=== PATIENT | female | born 1985 ===

== ENCOUNTER 2016-08-25 12:29 | Emergency (ER) | payer OTHER ==
[2016-08-25 12:36] VITALS: BP 101/57; PULSE 78; RESP 16; TEMP 98.4; O2SAT 100
--- NOTE | 2016-08-25 14:43 | ED PDOC ---
HPI: General Adult Time Seen by Provider: 08/25/16 14:41 Chief Complaint (Nursing): Finger,Hand,&Wrist Chief Complaint (Provider): vaginal discharge History Per: Patient (31 y/o female here with foul-smelling vaginal discharge ongoing x 4 months. Notes foul-smelling and similar to h/o BV. Denies any dysuria/itching. No new sexual partners. (+) condom use. Additional complaint of ongoing right wrist pain with numbness in first 3 digits of right hand associated with braiding hair. (patient is chair lift operator).) Past Medical History Reviewed: Historical Data, Nursing Documentation, Vital Signs Vital Signs: Last Vital Signs Temp 98.4 F 08/25/16 12:32 Pulse 78 08/25/16 12:32 Resp 16 08/25/16 12:32 BP 101/57 L 08/25/16 12:32 Pulse Ox 100 08/25/16 12:32 - Surgical History Surgical History: (x3) - Family History Family History: States: Unknown Family Hx - Immunization History Hx Tetanus Toxoid Vaccination: No Hx Influenza Vaccination: No Hx Pneumococcal Vaccination: No - Home Medications Home Medications: Ambulatory Orders Medication Instructions Recorded Fluconazole [Diflucan] 150 mg PO ONCE #1 tab 12/21/15 No Other Home Meds 12/21/15 Doxycycline Hyclate 100 mg PO BID #28 capsule 05/10/16 Naproxen [Naprosyn] 500 mg PO BID PRN #15 tablet 05/10/16 Metronidazole [Flagyl] 500 mg PO BID #14 tablet 08/25/16 Naproxen 1 tab PO BID PRN #14 tab 08/25/16 - Allergies Allergies/Adverse Reactions: Allergies Allergy/AdvReac Type Severity Reaction Status Date / Time No Known Allergies Allergy Verified 08/25/16 12:32 Review of Systems ROS Statement: Except As Marked, All Systems Reviewed And Found Negative Physical Exam - Reviewed Nursing Documentation Reviewed: Yes Vital Signs Reviewed: Yes - Physical Exam Appears: Positive for: Well, Non-toxic, No Acute Distress Head Exam: Positive for: ATRAUMATIC, NORMAL INSPECTION, NORMOCEPHALIC Skin: Positive for: Normal Color, Warm, DRY Eye Exam: Positive for: EOMI, Normal appearance, PERRL ENT: Positive for: Normal ENT Inspection Neck: Positive for: Normal, Painless ROM Cardiovascular/Chest: Positive for: Regular Rate, Rhythm Respiratory: Positive for: CNT, Normal Breath Sounds Gastrointestinal/Abdominal: Positive for: Normal Exam, Bowel Sounds, Soft Pelvic Exam: Positive for: Discharge (moderate thin [place] vaginal discharge noted. ). Negative for: Tender W/Cervical Motion, Tender Adnexa Back: Positive for: Normal Inspection Extremity: Positive for: Tenderness, Swelling (cystic lesion noted volar surface of right wrist.). Negative for: Normal ROM Neurologic/Psych: Positive for: Alert, Oriented - Laboratory Results Urine POC: Negative - ECG O2 Sat by Pulse Oximetry: 100 - Progress ED Course And Treament: GC sent d/w patient f/u with hand surgeon for further evaluation of carpal tunnel syndrome. Has wrist splint at home. Disposition - Clinical Impression Clinical Impression: Carpal tunnel syndrome, Ganglion cyst, Vaginitis - Patient ED Disposition Is Patient to be Admitted: No - Disposition Referrals: Brian Rivero MD [Medical Doctor] - Disposition: Routine/Home Disposition Time: 14:47 Condition: FAIR Prescriptions: Metronidazole [Flagyl] 500 mg PO BID #14 tablet Naproxen 1 tab PO BID PRN #14 tab PRN Reason: Pain, Moderate (4-7) Instructions: Vaginitis (ED), Carpal Tunnel Syndrome (ED), Ganglion Cysts (ED) Forms: [facility] ED School/Work Excuse
== END 2016-08-25 15:22 | disposition home or self-care (01) ==
LOC: H.ER 12:29
DX: N76.0 Acute vaginitis (principal); G56.01 Carpal tunnel syndrome, right upper limb; M67.431 Ganglion, right wrist

== ENCOUNTER 2017-04-10 22:47 | Emergency (ER) | payer SELFPAY ==
[2017-04-10 22:56] VITALS: BP 121/55; PULSE 86; RESP 14; TEMP 98.2; O2SAT 98
[2017-04-10] MEDS ORDERED: Fluconazole 150 MG TAB PO ONE (23:40)
--- NOTE | 2017-04-10 23:42 | ED PDOC ---
HPI: Female Pain Time Seen by Provider: 04/10/17 23:04 Chief Complaint (Nursing): Female Genitourinary Chief Complaint (Provider): Female Genitourinary History Per: Patient History/Exam Limitations: no limitations Onset/Duration Of Symptoms: Days (x1) Current Symptoms Are (Timing): Still Present Additional Complaint(s): 31 year old female with previous medical history of bacterial vaginosis, who presents to the emergency department with a complaint of vaginal odor ongoing for 1 day. Denied any vaginal discharge, difficulty urinating, bloody urine, pelvic pain, nausea, vomiting or back pain. Patient also reported possibly having hemorrhoids. PMD: none provided Past Medical History Reviewed: Historical Data, Nursing Documentation, Vital Signs Vital Signs: Last Vital Signs Temp 98.2 F 04/10/17 22:53 Pulse 86 04/10/17 22:53 Resp 14 04/10/17 22:53 BP 121/55 L 04/10/17 22:53 Pulse Ox 98 04/10/17 22:53 - Medical History PMH: No Chronic Diseases - Surgical History Surgical History: No Surg Hx, (x3) - Family History Family History: States: Unknown Family Hx - Social History Current smoker - smoking cessation education provided: No Alcohol: None Drugs: Denies - Immunization History Hx Tetanus Toxoid Vaccination: No Hx Influenza Vaccination: No Hx Pneumococcal Vaccination: No - Home Medications Home Medications: Ambulatory Orders Medication Instructions Recorded Fluconazole [Diflucan] 150 mg PO ONCE #1 tab 12/21/15 No Other Home Meds 12/21/15 Doxycycline Hyclate 100 mg PO BID #28 capsule 05/10/16 Naproxen [Naprosyn] 500 mg PO BID PRN #15 tablet 05/10/16 Metronidazole [Flagyl] 500 mg PO BID #14 tablet 08/25/16 Naproxen 1 tab PO BID PRN #14 tab 08/25/16 Hard Fat/Phenylephrine [place] 1 sup RC BID #28 sup 04/10/17 [Anusol Suppository] Hydrocortisone 2.5% (Rectal) 30 applic [place] BID #1 tube 04/10/17 [Anusol-HC] Miconazole/Cleanser 17 On Wipe 1 each VG DAILY #1 kit 04/11/17 [Miconazole 3 Kit] - Allergies Allergies/Adverse Reactions: Allergies Allergy/AdvReac Type Severity Reaction Status Date / Time No Known Allergies Allergy Verified 08/25/16 12:32 Review of Systems ROS Statement: Except As Marked, All Systems Reviewed And Found Negative Gastrointestinal: Negative for: Nausea, Vomiting Genitourinary Female: Positive for: Other (vaginal odor). Negative for: Dysuria , Hematuria, Vaginal Discharge, Pelvic Pain Musculoskeletal: Negative for: Back Pain Physical Exam - Reviewed Nursing Documentation Reviewed: Yes Vital Signs Reviewed: Yes - Physical Exam Appears: Positive for: Well, Non-toxic, No Acute Distress Head Exam: Positive for: ATRAUMATIC, NORMAL INSPECTION, NORMOCEPHALIC Skin: Positive for: Normal Color Eye Exam: Positive for: Normal appearance ENT: Positive for: Normal ENT Inspection Neck: Positive for: Normal Cardiovascular/Chest: Positive for: Regular Rate, Rhythm, Chest Non Tender Respiratory: Positive for: Normal Breath Sounds, Decreased Breath Sounds. Negative for: Wheezing, Respiratory Distress Gastrointestinal/Abdominal: Positive for: Normal Exam, Soft. Negative for: Tenderness Pelvic Exam: Positive for: No Cerv. Motion Tender, Discharge (thick and white). Negative for: External Exam Normal, Lesions, Tender Adnexa, Tender Uterus Extremity: Positive for: Normal ROM (upper/lower). Negative for: Pedal Edema ( bilateral) Neurologic/Psych: Positive for: Alert (x3), Oriented - ECG O2 Sat by Pulse Oximetry: 98 (RA) Pulse Ox Interpretation: Normal Medical Decision Making Medical Decision Making: Initial Impression: Vaginitis Initial Plan: * Diglucan 150mg PO * Urine Time: 2340 --RN present for pelvic exam. --Patient refused rectal exam. Patient instructed to follow-up with the clinic in 1-2 days without fail. Advised to take medication as prescribed. Return to the emergency room at any time for any new or worsening symptoms. Patient states she fully agrees with and understands discharge instructions. States that she agrees with the plan and disposition. Verbalized and repeated discharge instructions and plan. I have given the patient opportunity to ask any additional questions Scribe Attestation: Documented by Magdalena Larsen, acting as a scribe for Mounika Montejo PA-C. Provider Scribe Attestation: All medical record entries made by the Scribe were at my direction and personally dictated by me. I have reviewed the chart and agree that the record accurately reflects my personal performance of the history, physical exam, medical decision making, and the department course for this patient. I have also personally directed, reviewed, and agree with the discharge instructions and disposition. Disposition - Clinical Impression Clinical Impression: Vaginal candidiasis, Hemorrhoid - Patient ED Disposition Is Patient to be Admitted: No Counseled Patient/Family Regarding: Studies Performed, Diagnosis, Need For Followup, Rx Given - Disposition Referrals: [facility] [Outside] Disposition: Routine/Home Disposition Time: 23:41 Condition: STABLE Additional Instructions: Thank you for letting us take care of you today. You were treated for vaginal candidiasis, hemorrhoids. The emergency medical care you received today was directed at your acute symptoms. If you were prescribed any medication, please fill it and take as directed. It may take several days for your symptoms to resolve. Return to the Emergency Department if your symptoms worsen, do not improve, or if you have any other problems. Please call one of the physicians/clinics you have been referred to that are listed on the Patient Visit Information form that is included in your discharge packet. Bring any paperwork you were given at discharge with you along with any medications you are taking to your follow up visit. Our treatment cannot replace ongoing medical care by a primary care provider (PCP) outside of the emergency department. Thank you for allowing the [facility] team to be part of your care today. 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
== END 2017-04-11 01:15 | disposition home or self-care (01) ==
LOC: H.ER 22:47
DX: B37.9 Candidiasis, unspecified (principal); K64.8 Other hemorrhoids

== ENCOUNTER 2017-10-03 10:24 | Emergency (ER) | payer MEDICAID ==
[2017-10-03 10:37] VITALS: BP 109/53; PULSE 77; RESP 18; TEMP 97.8; O2SAT 99
--- NOTE | 2017-10-03 11:47 | ED PDOC ---
HPI: Female Pain Time Seen by Provider: 10/03/17 10:50 Chief Complaint (Nursing): Female Genitourinary Chief Complaint (Provider): Vaginal discharge History Per: Patient History/Exam Limitations: no limitations Additional Complaint(s): Pt reports malodorous vaginal discharge X 2 days. Denies fever, nausea, vomiting, abdominal pain, vaginal itching, vaginal bleeding. Pt reports multiple episodes of BV in past. Abnormal Vaginal Bleeding: No Past Medical History Reviewed: Nursing Documentation, Vital Signs Vital Signs: Last Vital Signs Temp 97.8 F 10/03/17 10:36 Pulse 77 10/03/17 10:36 Resp 18 10/03/17 10:36 BP 109/53 L 10/03/17 10:36 Pulse Ox 99 10/03/17 10:36 - Medical History PMH: No Chronic Diseases - Surgical History Surgical History: (x3) - Family History Family History: States: Unknown Family Hx - Social History Current smoker - smoking cessation education provided: No Alcohol: None - Immunization History Hx Tetanus Toxoid Vaccination: No Hx Influenza Vaccination: No Hx Pneumococcal Vaccination: No - Home Medications Home Medications: Ambulatory Orders Medication Instructions Recorded Fluconazole [Diflucan] 150 mg PO ONCE #1 tab 12/21/15 No Other Home Meds 12/21/15 Doxycycline Hyclate 100 mg PO BID #28 capsule 05/10/16 Naproxen [Naprosyn] 500 mg PO BID PRN #15 tablet 05/10/16 Metronidazole [Flagyl] 500 mg PO BID #14 tablet 08/25/16 Naproxen 1 tab PO BID PRN #14 tab 08/25/16 Hard Fat/Phenylephrine [place] 1 sup RC BID #28 sup 04/10/17 [Anusol Suppository] Hydrocortisone 2.5% (Rectal) 30 applic NM BID #1 tube 04/10/17 [Anusol-HC] metroNIDAZOLE [Flagyl] 500 mg PO BID #14 tab 04/11/17 - Allergies Allergies/Adverse Reactions: Allergies Allergy/AdvReac Type Severity Reaction Status Date / Time No Known Allergies Allergy Verified 08/25/16 12:32 Review of Systems Constitutional: Negative for: Fever, Chills Gastrointestinal: Negative for: Nausea, Vomiting, Abdominal Pain, Diarrhea Genitourinary Female: Positive for: Vaginal Discharge. Negative for: Dysuria, Hematuria, Vaginal Bleeding, Pelvic Pain Musculoskeletal: Negative for: Back Pain Skin: Negative for: Rash, Lesions Neurological: Negative for: Headache Physical Exam - Reviewed Nursing Documentation Reviewed: Yes Vital Signs Reviewed: Yes - Physical Exam Appears: Positive for: Well, No Acute Distress Skin: Positive for: Normal Color, Warm, Dry Cardiovascular/Chest: Positive for: Regular Rate, Rhythm Respiratory: Positive for: Normal Breath Sounds Gastrointestinal/Abdominal: Positive for: Normal Exam, Bowel Sounds, Soft. Negative for: Tenderness Pelvic Exam: Positive for: External Exam Normal, Discharge (Thick white). Negative for: No Cerv. Motion Tender, No Masses, Active Bleeding, Blood, Cervicitis, Lesions, Tender W/Cervical Motion, Tender Adnexa, Tender Uterus, Ulcers Extremity: Positive for: Normal ROM Neurologic/Psych: Positive for: Alert - ECG O2 Sat by Pulse Oximetry: 99 Medical Decision Making Medical Decision Makin yo female with vaginal discharge. - urine dip - urine hCG - GC chlamydia Disposition - Clinical Impression Clinical Impression: Female genitourinary symptoms - Disposition Disposition: Left W/O Treatment Disposition Time: 14:20 Condition: UNKNOWN Forms: [employer] (Venezuelan)
[2017-10-03 15:03] LABS: SQUAMOUS EPITHIAL 12 /hpf (0-5)
[2017-10-03 15:10] LABS: PH,URINE 5.5 (5.0-8.0); URINE BILIRUBIN NEGATIVE (NEGATIVE); URINE BLOOD NEGATIVE (NEGATIVE); URINE CLARITY Clear (Clear); URINE COLOR LIGHT YELLOW (YELLOW); URINE GLUCOSE (UA) NEGATIVE (Normal); URINE PROTEIN NEGATIVE (NEGATIVE)
[2017-10-03 15:11] LABS: URINE LEUKOCYTE ESTERASE NEGATIVE Leu/uL (Negative); URINE UROBILINOGEN 0.2 mg/dL (0.2-1.0)
== END 2017-10-03 14:25 | disposition left against medical advice (07) ==
LOC: H.ER 10:24
DX: N89.8 Other specified noninflammatory disorders of vagina (principal)

== ENCOUNTER 2018-08-14 09:31 | Emergency (ER) | payer OTHER ==
[2018-08-14 09:42] VITALS: BP 115/58; PULSE 68; RESP 16; TEMP 98.1; O2SAT 99
[2018-08-14 09:43] VITALS: BMI 29.9
--- NOTE | 2018-08-14 10:41 | ED PDOC ---
HPI: Female Pain Time Seen by Provider: 08/14/18 10:14 History Per: Patient History/Exam Limitations: no limitations Onset/Duration Of Symptoms: Days Current Symptoms Are (Timing): Still Present Associated Symptoms: denies: Fever, Chills, Vomiting Additional Complaint(s): Pt. is a healthy 33 y/o Female who reports to ER with vaginal complaints x 3 days. Pt. reports mild vaginal discharge which "has an odor" and also reports some itching to external genitalia. Pt. is concerned she may have a yeast infection. Pt. is sexually active, one partner, uses condoms. Abnormal Vaginal Bleeding: No Past Medical History Vital Signs: Last Vital Signs Temp 98.1 F 08/14/18 09:42 Pulse 68 08/14/18 09:42 Resp 16 08/14/18 09:42 BP 115/58 L 08/14/18 09:42 Pulse Ox 99 08/14/18 09:42 SUNNI Report Viewed: Yes - Medical History PMH: No Chronic Diseases - Surgical History Surgical History: (x3) - Family History Family History: States: Unknown Family Hx - Immunization History Hx Tetanus Toxoid Vaccination: No Hx Influenza Vaccination: No Hx Pneumococcal Vaccination: No - Home Medications Home Medications: Ambulatory Orders Medication Instructions Recorded Fluconazole [Diflucan] 150 mg PO ONCE #1 tab 12/21/15 No Other Home Meds 12/21/15 Doxycycline Hyclate 100 mg PO BID #28 capsule 05/10/16 Naproxen [Naprosyn] 500 mg PO BID PRN #15 tablet 05/10/16 Metronidazole [Flagyl] 500 mg PO BID #14 tablet 08/25/16 Naproxen 1 tab PO BID PRN #14 tab 08/25/16 Hard Fat/Phenylephrine [place] 1 sup RC BID #28 sup 04/10/17 [Anusol Suppository] Hydrocortisone 2.5% (Rectal) 30 applic SC BID #1 tube 04/10/17 [Anusol-HC] metroNIDAZOLE [Flagyl] 500 mg PO BID #14 tab 04/11/17 Fluconazole [Diflucan] 150 mg PO DAILY #2 tab 08/14/18 Metronidazole [Flagyl] 500 mg PO BID #14 tablet 08/14/18 - Allergies Allergies/Adverse Reactions: Allergies Allergy/AdvReac Type Severity Reaction Status Date / Time No Known Allergies Allergy Verified 08/25/16 12:32 Review of Systems Constitutional: Negative for: Fever, Chills Gastrointestinal: Negative for: Nausea, Vomiting, Abdominal Pain Genitourinary Female: Positive for: Vaginal Discharge. Negative for: Dysuria, Vaginal Bleeding, Pelvic Pain Skin: Negative for: Rash, Lesions Physical Exam - Physical Exam Appears: Positive for: Well, Non-toxic Skin: Positive for: Normal Color, Warm, Dry Cardiovascular/Chest: Positive for: Regular Rate, Rhythm Respiratory: Positive for: Normal Breath Sounds Gastrointestinal/Abdominal: Positive for: Normal Exam, Soft. Negative for: Tenderness Pelvic Exam: Positive for: External Exam Normal, Bimanual Exam Normal, Discharge (Mild white vaginal discharge). Negative for: No Cerv. Motion Tender, Lesions, Ulcers - ECG O2 Sat by Pulse Oximetry: 99 Medical Decision Making Medical Decision Making: Urine preg: Urine gc/chlamydia sent. Pt. well appearing, nontoxic, no signs or symptoms of PID. Will give rx diflucan, flagyl. Will send gc/chlamydia but withold tx pending cx. Pt. comfortable with plan. 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 Disposition - Clinical Impression Clinical Impression: Vaginal candidiasis, Vaginitis - Patient ED Disposition Is Patient to be Admitted: No Counseled Patient/Family Regarding: Studies Performed, Diagnosis, Need For Followup, Rx Given - [facility]position [facility] Disposition: Routine/Home Disposition Time: 10:44 Condition: STABLE Prescriptions: Fluconazole [Diflucan] 150 mg PO DAILY #2 tab Metronidazole [Flagyl] 500 mg PO BID #14 tablet Instructions: Vaginal Yeast Infection (DC), Bacterial Vaginosis (DC)
== END 2018-08-14 11:23 | disposition home or self-care (01) ==
LOC: SUPCPDRO 09:31 → H.ER 09:31
DX: B37.3 Candidiasis of vulva and vagina (principal); N76.0 Acute vaginitis